=== PATIENT | female | born 1970 | race Caucasian/White ===

== ENCOUNTER 2021-03-27 16:32 | Outpatient (REF) | payer OTHER, SELFPAY ==
--- NOTE | 2021-03-27 16:15 | PAPFT_PTH ---
PATIENT: Ivet Vo LOC: [facility] U#:[id number] AGE/SX: 50/F ROOM: RE03/27/[address]: Cindy Nicolas : 1970 BED: DIS: 03/27/2021 SPEC #: [id number] RECD: 03/30/21 12:59 STATUS: [place] REQ #: [id number] EMMA: 03/27/21 16:[address]: Cindy Nicolas DEPT: [facility] Cytology RECD BY: Yocasta Cardoza ENTERED: 03/30/21 12:59 SP TYPE: PAPFT OTHR DR: Tao Patino Tissues: 1 - CX/ENDOCX FOR PAP SMEARS Procedures: PAP THIN PREP/[facility] Screening HPV DNA PROBE Comments: [id number] (HPV 16 & 18/45)
== END 2021-03-27 16:33 | disposition home or self-care (01) ==
LOC: NCHCN 16:32
PROVIDERS: Visit Provider Registered Nurse
DX: Z00.00 Encounter for general adult medical examination without abnormal findings (principal); Z12.4 Encounter for screening for malignant neoplasm of cervix; Z11.51 Encounter for screening for human papillomavirus (HPV); R87.810 Cervical high risk human papillomavirus (HPV) DNA test positive
CPT/HCPCS: 88142; 87624

== ENCOUNTER 2023-06-14 13:36 | Outpatient (REF) | payer OTHER, SELFPAY ==
[2023-06-14 14:49] LABS: HGB 14.5 g/dL (11.2-15.7); MCH 28.9 pg (27.0-33.0); MCV 88 fL (80-95); MPV 12.2 fL (8.0-11.0); Platelet Count 202 10^3/uL (130-400); RBC 5.01 10^6/uL (3.93-5.22); RDW 12.9 % (11.7-14.6); RDW-SD 41.3 fL; WBC 4.92 10^3/uL (4.4-10.8)
[2023-06-14 15:08] LABS: ALT 110 U/L (14-59); AST 77 U/L (15-37); Albumin 4.1 g/dL (3.4-5.0); Alkaline Phosphatase 62 U/L (46-116); Anion Gap 9.7 mmol/L (3-11); BUN 11 mg/dL (7-18); Bilirubin, Total 0.4 mg/dL (0.2-1.0); CO2 26.3 mmol/L (21.0-32.0); CREATININE 0.8 mg/dL (0.55-1.02); Calcium 9.3 mg/dL (8.5-10.1); Calculated LDL 112 mg/dL (<100); Chloride 107 mmol/L (98-107); Cholesterol 196 mg/dL (<200); Glucose 92 mg/dL (74-106); HDL Cholesterol 50 mg/dL (40-60); Potassium 3.8 mmol/L (3.5-5.1); Sodium 143 mmol/L (136-145); TSH 1.75 uIU/mL (0.36-3.74); Total Protein 7.6 g/dL (6.4-8.2); Triglyceride 170 mg/dL (<150)
[2023-06-14 15:43] LABS: Hemoglobin A1C 5.7 % (<5.7)
== END 2023-06-14 13:37 | disposition home or self-care (01) ==
LOC: NCHCN 13:36
PROVIDERS: Visit Provider Family Medicine
DX: Z00.00 Encounter for general adult medical examination without abnormal findings (principal); Z13.29 Encounter for screening for other suspected endocrine disorder; Z13.1 Encounter for screening for diabetes mellitus; Z13.220 Encounter for screening for lipoid disorders; Z13.0 Encounter for screening for diseases of the blood and blood-forming organs and certain disorders involving the immune mechanism
CPT/HCPCS: 80053; 80061; 85027; 83036; 84443

== ENCOUNTER 2024-03-27 16:26 | Outpatient (REF) | payer OTHER, SELFPAY ==
--- NOTE | 2024-03-27 10:05 | PAPFT_PTH ---
PATIENT: Ivet Vo LOC: [facility]#:[id number] AGE/SX: 53/F ROOM: RE03/27/[address]: LETA: 1970 BED: DIS: 03/27/2024 SPEC #: [id number] RECD: 03/27/24 18:35 STATUS: [place] REBritney #: [id number] EMMA: 03/27/24 10:[address]: Margo Caro DEPT: [facility] Cytology RECD BY: Yocasta Cardoza Tissues: 1 - CX/ENDOCX FOR PAP SMEARS Procedures: PAP THIN PREP/UVM Screening HPV DNA PROBE Comments: [id number] (HPV 16 & 18/45)
--- OUTSIDE RECORDS SUMMARY | 2024-03-27 16:27 | XMS_ITS | Encounter Summary ---
Author Organization [facility] Address [address] [place] [address] Care Team Providers Care Photographic Laboratory Technician Name Role Phone Tao Patino MD Primary Care Provider Un available Encounter Details Date Type Department Care Team (Late st Contact Info) Description 03/31/2021 Lab Requisition [facility] Pathology & Laboratory Medicine - [facility] [address] [place] [address] Cindy Nicolas, ROUTE SALES REPRESENTATIVE [address] [place] [phone] Encounter for general adult medical examination without abnormal findings; Encounter for screening for malignant neoplasm of cervix Social History Tobacco Use Types Packs/Day Years Used Date Smoking Tobacco: Never Assessed Sex and Gender Information Value Date Recorded Sex Assigned at Not on file Gender Identity Not on file Sexual Orientation Not on file documented as of this encounter Plan of Treatment Not on file documented as of this encounter Procedures Procedure Name Priority Date/Time Associated Diagnosis Comments PAP TEST Today 03/27/2021 16:15 EDT Encounter for general adult medical examination without abnormal findings Encounter for screening for malignant neoplasm of cervix HPV GENOTYPES 16 AND 18/45 Today 03/27/2021 16:15 EDT Encounter for general adult medical examination without abnormal findings Encounter for screening for malignant neoplasm of cervix HPV DNA DETECTION WITH GENOTYPING, PCR Today 03/27/2021 16:15 EDT Encounter for general adult medical examination without abnormal findings Encounter for screening for malignant neoplasm of cervix documented in this encounter Results * (ABNORMAL) HPV GENOTYPES 16 AND 18/45 (03/27/2021 16:15 EDT) HPV High Risk type 16, PCR Negative Negative 04/16/2021 15:20 EDT [facility] HPV18/45 RNA (HPV18/45) Positive(A) Negative 04/16/2021 15:20 EDT [facility] Papanicolaou smear specimen (specimen) CERVIX UTERI STRUCTURE / Unknown 03/27/2021 16:15 EDT 04/10/2021 9:36 EDT Cindy Nicolas APRN MICROBIOLOGY - G ENERAL ORDERABLES Performing Organization Address [facility] Co de Phone Number [facility] [address] [place] [address] * (ABNORMAL) HUMAN PAPILLOMAVIRUS (HPV) DETECTION-HIGH RISK TYPES (03/27/2021 16:15 EDT) HPV other High Risk types, PCR Positive( A) Negative 04/16/2021 15:20 EDT [facility] Comment:E6 OR E7 mRNA from o ne or more types of HPV types 16,18,31,33,35,39,45,51,52,56,58,59,66, and 68 is detected by assistant plant control operator mediated amplification. High and intermediate risk HPV types are associated with most squamous intraepithelial lesions and cervical cancers. Papanicolaou smear specimen (specimen) CERVIX UTERI STRUCTURE / Unknown 03/27/2021 16:15 EDT 04/10/2021 9:36 EDT Cindy Nicolas APRN MICROBIOLOGY - G ENERAL ORDERABLES Performing Organization Address [facility] Co de Phone Number [facility] [address] [place] [address] * PAP TEST (03/27/2021 16:15 EDT) Specimens A. Cervix and/or Endocervix , ThinPrep Imaging System with Manual Evaluation 04/16/2021 15:20 EDT [facility] Specimen Adequacy Satisfactory for Evaluation - transformation zone component present 04/16/2021 15:20 T [facility] General Categorization Negative for intraepithelial lesion or malignancy 04/16/2021 15:20 [facility] Descriptive Diagnosis Reactive cellular changes associated with inflammation present (includes repair). 04/16/2021 15:20 [facility] Attestation By the signature below, the attending physician certifies that they have personally conducted a gross and/or microscopic examination of the described specimens and rendered or confirmed the above diagnosis. 04/16/2021 15:20 [facility] at 1520 Clinical History See below 04/16/20 15:20 [facility] HPV The result for the Human Papillomavirus (HPV) Detection-High Risk Types is Positive . E6 OR E7 mRNA from one or more types of HPV types 16,18,31,33,35,39 ,45,51,52,56,58,5 9,66, and 68 is detected by assistant plant control operator mediated amplification. High and intermediate risk HPV types are associated with most squamous intraepithelial lesions and cervical cancers. Testing was performed on specimen [id number] and was resulted on 04/13/2021 1600 EDT by NAZANIN, LAB INSTRUMENT RESULTS IN 04/16/2021 15:20 EDT [facility] Genotyping 16 & 18/45 The results for the HPV Genotypes 16 and 18/45 are Negative for the HPV16 RNA and Positive for the HPV18/45 RNA (HPV18/45) . Testing was performed on specimen [id number] and was resulted on 04/16/2021 1515 EDT by NAZANIN, LAB INSTRUMENT RESULTS IN 04/16/2021 15:20 T [facility] Performing Lab [facility] 04/16/2021 15:20 T [facility] Scanned Images 04/16/2021 15:20 T [facility] Papanicolaou smear specimen (specimen) CERVIX UTERI STRUCTURE / Unknown 03/27/2021 16:15 EDT 03/31/2021 10:24 EDT Cindy M Nicolas ROUTE SALES REPRESENTATIVE PATHOLOGY [facility] [address] [place] [address] documented in this encounter Visit Diagnoses Diagnosis Encounter for general adult medical examination without abnormal findings Unspecified general medical examination Encounter for screening for malignant neoplasm of cervix Screening for malignant neoplasm of the cervix documented in this encounter Care Teams Photographic Laboratory Technician Relationship Specialty Start Date End Date Tao Patino MD PCP - General 06/24/15 documented as of this encounter
--- OUTSIDE RECORDS SUMMARY | 2024-03-27 16:27 | XMS_ITS | Referral Summary ---
Author Organization [facility] Address [address] [place] [id number] Care Team Providers Care Venue Manager Name Role Phone Tao Patino MD Primary Care Provider Un available Social History Tobacco Use Types Packs/Day Years Used Date Smoking Tobacco: Never Assessed Sex and Gender Information Value Date Recorded Sex Assigned at Not on file Gender Identity Not on file Sexual Orientation Not on file Plan of Treatment Not on file Care Teams Venue Manager Relationship Specialty Start Date End Date Tao Patino MD PCP - General 06/24/15
--- OUTSIDE RECORDS SUMMARY | 2024-03-27 16:27 | XMS_ITS | Encounter Summary ---
Author Organization [facility] Address [address] [place] [address] Care Team Providers Care Electrotyper Apprentice Name Role Phone Unavailable Primary Care Provider Unavailabl e Encounter Details Date Type Department Care Team (Latest Contact Info) Description 01/03/2004 14:59 EDT Hospital Encounter [facility] - Other [address] [place] [address] Luci Cruz PA-C [address] [place] [address] ,[address] [place], [place] [id number] Discharge Disposition: Auto Discharge Social History Tobacco Use Types Packs/Day Years Used Date Smoking Tobacco: Never Assessed Sex and Gender Information Value Date Recorded Sex Assigned at Not on file Gender Identity Not on file Sexual Orientation Not on file documented as of this encounter Discharge Disposition Disposition Code Departure Means Destination Auto Discharge documented in this encounter Plan of Treatment Not on file documented as of this encounter Procedures Procedure Name Priority Date/Time Associated Diagnosis Comments COMPLETE BLOOD COUNT Routine 01/03/2004 15:02 EDT ALT Routine 01/03/2004 15:02 EDT ALBUMIN Routine 01/03/2004 15:02 EDT documented in this encounter Results * (ABNORMAL) HEMAGRAM (01/03/2004 15:02 EDT) WBC 6.61 4.0 - 12.4 K/cmm [facility] RBC 5.12(H) 3.86 - 5.04 M/cmm [facility] Hemoglobin 15.0 11.6 - 15.2 gm/dl [facility] HCT 44.3 34.9 - 44.4 % [facility] MCV 86 81 - 98 fl [facility] MCH 29.3 26.7 - 33.3 pg [facility] MCHC 33.9 32.1 - 35.9 gm/dl [facility] PLT 209 141 - 320 K/cmm [facility] RDW-CV 13.1 11.7 - 14.6 % [facility] 01/03/2004 15:0 2 EDT 01/03/2004 15:07 EDT Luci Cruz PA-C HEMATOLOGY & PF4 ORDERABLES Performing Organization Address City/[facility] Co de Phone Number [facility] [address] [place] [address] * ALT (01/03/2004 15:02 EDT) ALT 29 9 - 52 U/L [facility] 01/03/2004 15:0 2 EDT 01/03/2004 15:07 EDT Luci Cruz PA-C CHEMISTRY & B LOOD GAS ORDERABLES Performing Organization Address [facility] Co de Phone Number [facility] [address] [place] [address] * ALBUMIN (01/03/2004 15:02 EDT) Albumin 4.3 3.4 - 4.9 g/dl [facility] 01/03/2004 15:0 2 EDT 01/03/2004 15:07 EDT Luci Cruz PA-C CHEMISTRY & B LOOD GAS ORDERABLES Performing Organization Address [facility] Co de Phone Number [facility] [address] [place] [address] documented in this encounter Visit Diagnoses Not on filedocumented in this encounter
--- OUTSIDE RECORDS SUMMARY | 2024-03-27 16:27 | XMS_ITS | Encounter Summary ---
Author Organization [facility] Address [address] [place] [address] Care Team Providers Care Casting Director Name Role Phone Unavailable Primary Care Provider Unavailabl e Encounter Details Date Type Department Care Team (Late st Contact Info) Description 11/13/2002 13:01 EST Hospital Encounter [facility] - [address] [address] [place] [address] Social History Tobacco Use Types Packs/Day Years Used Date Smoking Tobacco: Never Assessed Sex and Gender Information Value Date Recorded Sex Assigned at Not on file Gender Identity Not on file Sexual Orientation Not on file documented as of this encounter Plan of Treatment Not on file documented as of this encounter Procedures Procedure Name Priority Date/Time Associated Diagnosis Comments ANTITHROMBIN, FUNCTIONAL Routine 11/13/2002 15:52 EST documented in this encounter Results * (ABNORMAL) ANTITHROMBIN, FUNCTIONAL (11/13/2002 15:52 EST) Antithrombin, Funct. 53(L) 86 - 128 % [facility] Comment: Sample retested, result confirmed CAUTION: Antithrombin III levels can be INCREASED by coumadin and DECREASED by heparin. Results must be interpreted with caution for patients on these drugs. Results may be overestimated in the presence of direct thrombin inhibitors such as Hirudin (Refludan) and Argatroban (Novastan). Acute illness and/or thrombosis may influence test results in an unpredictable manner, therefore results should be interpreted with caution in this setting. 11/13/2002 15:5 2 EST 11/13/2002 15:53 EST Rosita Prado MD HEMATOLOGY & PF4 O RDERABLES Performing Organization Address City/State/[facility] Co de Phone Number [facility] [address] [place] [address] documented in this encounter Visit Diagnoses Not on filedocumented in this encounter
--- OUTSIDE RECORDS SUMMARY | 2024-03-27 16:27 | XMS_ITS | Clinical Summary ---
Author Organization [facility] Address [address] [place] [address] Care Team Providers Care Pier Worker Name Role Phone Tao Patino MD Primary Care Provider Un available Social History Tobacco Use Types Packs/Day Years Used Date Smoking Tobacco: Never Assessed Sex and Gender Information Value Date Recorded Sex Assigned at Not on file Gender Identity Not on file Sexual Orientation Not on file Plan of Treatment Health Maintenance Due Date Last Done Comments Hepatitis C Screen 1970 Hepatitis B Vaccine (1 of 3 - 19+ 3-dose series) 11/15 COVID-19 Vaccine (2022-24 season) 2023 Care Teams Pier Worker Relationship Specialty Start Date End Date Tao Patino MD PCP - General 06/24/15
[2024-03-27 17:09] LABS: Calculated LDL 102 mg/dL (<100); Cholesterol 200 mg/dL (<200); HDL Cholesterol 49 mg/dL (40-60); TSH (W/Ref FT4) 2.25 uIU/mL (0.36-3.74); Triglyceride 248 mg/dL (<150)
[2024-03-27 18:16] LABS: Hemoglobin A1C 5.7 % (<5.7)
== END 2024-03-27 16:27 | disposition home or self-care (01) ==
LOC: NCHCN 16:26
PROVIDERS: PCP Family Medicine; Visit Provider Family Medicine
DX: Z12.4 Encounter for screening for malignant neoplasm of cervix (principal); Z72.51 High risk heterosexual behavior; Z86.19 Personal history of other infectious and parasitic diseases
CPT/HCPCS: 80061; 88142; 83036; 84443; 87624

== ENCOUNTER 2025-04-03 19:37 | Outpatient (REF) | payer OTHER, SELFPAY ==
[2025-04-03 22:12] LABS: Calculated LDL 117 mg/dL (<100); Cholesterol 204 mg/dL (<200); HDL Cholesterol 50 mg/dL (>or=50); TSH (W/Ref FT4) 1.83 uIU/mL (0.36-3.74); Triglyceride 186 mg/dL (<150)
[2025-04-03 22:39] LABS: Hemoglobin A1C 5.9 % (<5.7)
== END 2025-04-03 19:38 | disposition home or self-care (01) ==
LOC: NCHCN 19:37
PROVIDERS: PCP Family Medicine; Visit Provider Family Medicine
DX: Z00.00 Encounter for general adult medical examination without abnormal findings (principal); R73.03 Prediabetes; E78.5 Hyperlipidemia, unspecified
CPT/HCPCS: 80061; 83036; 84443